=== PATIENT | female | born 1965 | race African-American/Black ===

== ENCOUNTER 2024-11-03 06:50 | Emergency (ER) | payer BC ==
[2024-11-03 06:58] VITALS: BMI 26.1
[2024-11-03 08:19] LABS: INR 0.98 (0.83-1.09); PROTHROMBIN TIME (PATIENT) 11.2 SEC (9.7-13.0)
[2024-11-03 08:22] LABS: ACTIVATED PTT 33.1 SECONDS (25.2-36.5)
[2024-11-03 08:50] LABS: HEMATOCRIT 42.4 % (32.4-45.2); HEMOGLOBIN 13.9 G/dL (10.7-15.3); MCH 27.5 pg (25.7-33.7); MCHC 32.8 g/dl (32.0-36.0); MEAN PLT VOLUME 10.3 fl (7.5-11.1); PLATELET COUNT 268.2 10^3/uL (134-434); RBC 5.05 10^6/uL (3.60-5.2); RDW 15.3 % (11.6-15.6); WHITE BLOOD COUNT 4.1 10^3/uL (4.0-10.8)
[2024-11-03 09:10] LABS: PLATELET ESTIMATE ADEQUATE
[2024-11-03 09:12] LABS: CHOLESTEROL 201 mg/dL (50-200); HDL CHOLESTEROL 55 mg/dL (40-60); LDL CHOLESTEROL (ONLY DFH) 135 mg/dL (5-100)
[2024-11-03] MEDS ORDERED: TENECTEplase 50 MG VIAL IVPUSH ONE (09:51)
[2024-11-03 09:59] LABS: ALBUMIN 4.1 g/dl (3.4-5.0); BILIRUBIN,TOTAL 0.4 mg/dl (0.2-1); CALCIUM 9.9 mg/dl (8.5-10.1); POTASSIUM 4.2 mmol/L (3.5-5.1); TOT PROT 7.1 g/dl (6.4-8.2)
[2024-11-03] MEDS ORDERED: levETIRAcetam 500 MG/5 ML INJECTION VIAL IVPB ONE (10:05)
[2024-11-03] MEDS: levETIRAcetam 500 MG/5 ML INJECTION VIAL IVPB ONE (10:27)
[2024-11-03 11:06] LABS: CREATININE 1.2 mg/dl (0.6-1.3)
[2024-11-03 11:40] VITALS: RESP 18
[2024-11-03 12:17] VITALS: PULSE 70
[2024-11-03 12:59] VITALS: BP 144/77; TEMP 98.1
== END 2024-11-03 13:00 | disposition short-term general hospital (02) ==
LOC: FER 06:50
PROC: 3E033GC Introduction of Other Therapeutic Substance into Peripheral Vein, Percutaneous Approach (ICD-10-PCS; principal; 2024-11-03)
DX: R47.89 Other speech disturbances (principal); R41.844 Frontal lobe and executive function deficit
CPT/HCPCS: 36415; 70450-TC; 70496-TC; 80053; 80061; 81003; 82550; 83036; 84484; 85027; 85610; 85730; 86850; 86900; 86901; 93005; 99291; Q9967